=== PATIENT | female | born 1980 | race Caucasian/White ===

== ENCOUNTER 2017-02-28 21:26 | Emergency (ER) | payer SELFPAY | END 2017-03-01 01:14 | disposition left against medical advice (07) | LOC: FTE 21:26 | DX: Z53.21 Procedure and treatment not carried out due to patient leaving prior to being seen by health care provider (principal) ==

== ENCOUNTER 2017-09-01 17:42 | Emergency (ER) | payer MEDICAID ==
[2017-09-01] MEDS: HYDROCODONE/APAP (5/325) TAB PO (20:00)
[2017-09-01] MEDS: KETOROLAC 30 MG INJ IM (20:01)
== END 2017-09-01 21:55 | disposition home or self-care (01) ==
LOC: FTE 17:42
DX: M25.562 Pain in left knee (principal)
CPT/HCPCS: 29505; 73562; 81025; 96372; 99284-25

== ENCOUNTER 2018-05-29 19:09 | Emergency (ER) | payer SELFPAY, OTHER, MEDICAID ==
[2018-05-29] MEDS: KETOROLAC 30 MG INJ IM (21:16)
== END 2018-05-29 23:15 | disposition home or self-care (01) ==
LOC: FTE 19:09
DX: S89.91XA Unspecified injury of right lower leg, initial encounter (principal); F17.210 Nicotine dependence, cigarettes, uncomplicated; X50.1XXA Overexertion from prolonged static or awkward postures, initial encounter; Y92.9 Unspecified place or not applicable
CPT/HCPCS: 73562; 81025; 96372; 99284-25